=== PATIENT | female | born 1985 | race Caucasian/White ===

== ENCOUNTER 2017-01-16 11:52 | Emergency (ER) | payer OTHER ==
[2017-01-16 12:14] VITALS: O2SAT 94
--- NOTE | 2017-01-16 13:13 | EDPHY ---
General Narrative: CHIEF COMPLAINT: Asthma exacerbation HISTORY OF PRESENT ILLNESS: Patient complains of 1 day history of asthma exacerbation. She said that she felt the symptoms, last night but awoke this morning with severe wheezing and shortness of breath. Took her inhaler multiple times with no improvement. Some chest discomfort. Minimal cough. No fever. No abdominal urinary complaints. No cyanosis, pallor or paresthesia. No other associated complaints or modifying factors. History of asthma that has not been well controlled but cannot afford the longer-acting medications. No current primary care physician. REVIEW OF SYSTEMS: Ten systems reviewed and are negative unless otherwise noted in the HPI PAST MEDICAL HISTORY: Asthma PAST SURGICAL HISTORY: None SOCIAL HISTORY: Does not smoke cigarettes but does smoke marijuana. 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 No retractions. No distress. No tachypnea. No consolidation or diminishment Cardiovascular: Regular rate and rhythm. No murmur Gastrointestinal: Abdomen is soft and nontender Back: non-tender, no bony abnormalities Neurological: A&O, nonfocal, normal gait Skin: Warm and dry, no rash Extremities: Nontender, no pedal edema Psychiatric: Mood and affect normal DIFFERENTIAL DIAGNOSES: Including but not limited to asthma exacerbation, asthma without status asthmaticus, pneumonia, bronchitis MDM: 1:09 p.m. Asthma exacerbation without status asthmaticus. She is feeling significantly better here. I do not appreciate any evidence of pneumonia by auscultation. I do not feel she warrants x-ray as a vital signs are all within normal limits and she is feeling much better. I do feel she is stable for discharge home with continued oral steroids. I will also refill her nebulizers with DuoNeb treatments. She is to contact her primary care physician for follow-up. I recommended she discuss a long-acting beta agonist or long-acting steroid treatment as she only has albuterol at home. She is comfortable this plan. We discussed ED precautions. Discharged home stable condition. - History Smoking Status: Never smoked - Objective Vital Signs: Initial Vital Signs Temperature (C) 98.2 F 01/16/17 12:05 Heart Rate 93 01/16/17 12:05 Respiratory Rate 24 H 01/16/17 12:05 Blood Pressure 121/90 H 01/16/17 12:05 O2 Sat (%) 100 01/16/17 12:05 O2 Delivery Mode Room Air O2 (L/minute) 2 Allergies/Adverse Reactions: No Known Allergies Allergy (Unverified 01/16/17 12:04) Home Medications: Medication Instructions Recorded Albuterol 5 mg/ml INH 01/16/17 Benzonatate [Tessalon Pearles (RX)] 100 mg PO Q8 PRN #15 cap 01/16/17 Ipratropium/Albuterol [Duoneb (*)] 3 ml IH Q4 PRN #1 deyvial 01/16/17 Nasonex 01/16/17 Prevacid 01/16/17 Zyrtec 01/16/17 predniSONE [Deltasone] 60 mg PO DAILY #15 tablet 01/16/17 Departure - Departure Disposition: Home, Routine, Self-Care Clinical Impression: Asthma without status asthmaticus Qualifiers: Asthma severity: moderate persistent Asthma complication type: with acute exacerbation Qualified Code(s): J45.41 - Moderate persistent asthma with (acute ) exacerbation Condition: Good Instructions: Asthma (ED), How to Use a Nebulizer (ED) Additional Instructions: 1. Prednisone as prescribed to completion 2. Nebulized as prescribed as needed 3. Follow up with primary care physician for further care and further medications 4. ED precautions as discussed Referrals: NONE *PRIMARY CARE P,. [Primary Care Provider] - As per Instructions Ariel Arroyo DO [Doctor of Osteopathy] - As per Instructions Prescriptions: Benzonatate [Tessalon Pearles (RX)] 100 mg PO Q8 PRN #15 cap PRN Reason: Cough, Mild Ipratropium/Albuterol [Duoneb (*)] 3 ml IH Q4 PRN #1 deyvial PRN Reason: Wheezing predniSONE [Deltasone] 60 mg PO DAILY #15 tablet
[2017-01-16 13:34] VITALS: BP 123/78; PULSE 78; RESP 16; TEMP 98.4
== END 2017-01-16 13:35 | disposition home or self-care (01) ==
LOC: EDBD 11:52
DX: J45.41 Moderate persistent asthma with (acute) exacerbation (principal)